=== PATIENT | male | born 1980 | race Caucasian/White ===

== ENCOUNTER 2021-03-17 21:27 | Observation (INO) | payer OTHER ==
[~2021-03-17] VITALS: Ht 172.7 cm; Wt 71.3 kg
[~2021-03-17 21:27] MED LIST: MAG-OX 400 TAB400 MG PO; POTASSIUM CHLO10 ME1 PO
[2021-03-18 00:04] LABS: HEMOGLOBIN 14.7 gm/dl (14.0-17.5); RED BLOOD COUNT 4.62 M/UL (4.20-5.50); WHITE BLOOD COUNT 7.3 K/UL (4.5-11.0)
[2021-03-18 00:35] LABS: BUN/CREATININE RATIO 12 (0-10)
[2021-03-18] MEDS ORDERED: FOLIC ACID 1 MG1 MG PO (14:45)
[2021-03-18] MEDS ORDERED: PROTONIX 40 MG40 M1 PO (14:46)
[2021-03-18] MEDS ORDERED: VITAMIN B-1100 MG PO (14:48)
[2021-03-18] MEDS ORDERED: LISINOPRIL20 MG PO (14:49)
[2021-03-19 03:16] LABS: HEMOGLOBIN 12.8 gm/dl (14.0-17.5); WHITE BLOOD COUNT 8.7 K/UL (4.5-11.0)
[2021-03-19 03:17] LABS: RED BLOOD COUNT 4.06 M/UL (4.20-5.50)
[2021-03-19 03:45] LABS: BUN/CREATININE RATIO 18 (0-10)
[2021-03-20 04:55] LABS: HEMOGLOBIN 13.2 gm/dl (14.0-17.5); RED BLOOD COUNT 4.2 M/UL (4.20-5.50); WHITE BLOOD COUNT 8.4 K/UL (4.5-11.0)
[2021-03-20 05:33] LABS: BUN/CREATININE RATIO 12 (0-10)
== END 2021-03-20 15:51 | disposition home or self-care (01) ==
LOC: ER1 21:27 → MED SURG 4 03-18 08:36 → CDU 03-18 08:36 → PROG CARE 03-18 08:36 → MED SURG 4 03-19 17:55
PROVIDERS: Physician Assistant; Physician Assistant Medical; ADMIT Internal Medicine
DX: F10.139 Alcohol abuse with withdrawal, unspecified (principal); F19.10 Other psychoactive substance abuse, uncomplicated; F17.210 Nicotine dependence, cigarettes, uncomplicated; I10 Essential (primary) hypertension; Y90.6 Blood alcohol level of 120-199 mg/100 ml; Z20.822 Contact with and (suspected) exposure to COVID-19
CPT/HCPCS: 36415; 71045; 80048; 80053; 80307; 81001; 82009; 82550; 82553; 83690; 83735; 83874; 83880; 84100; 84439; 84443; 84484; 85025; 85027; 85610; 85730; 87086; G0378; G0480; J3411; J3475; J7030; U0002